=== PATIENT | female | born 1955 | race Caucasian/White ===

== ENCOUNTER 2023-06-05 08:16 | Inpatient (IN) | payer OTHER ==
[~2023-06-05] VITALS: Ht 157.5 cm; Wt 80.7 kg
[2023-06-05 16:28] VITALS: BP 167/80; PULSE 104; RESP 17; TEMP 97.4; O2SAT 97
[2023-06-05 16:55] LABS: BASOPHILS # (AUTO) 0.1 K/uL (0.00-0.22); BASOPHILS % (AUTO) 0.5 % (0.0-2.0); EOSINOPHILS # (AUTO) 0.1 K/uL (0-0.4); EOSINOPHILS % (AUTO) 1.2 % (0.0-4.0); HEMATOCRIT 42.7 % (36-48); HEMOGLOBIN 14.1 g/dL (12.0-16.0); LYMPHOCYTES # (AUTO) 1.8 K/uL (2.5-16.5); LYMPHOCYTES % (AUTO) 18.3 % (20.5-51.1); MEAN CORPUSCULAR HEMOGLOBIN 28 pg (27-31); MEAN CORPUSCULAR HGB CONC 33 g/dL (33-37); MEAN CORPUSCULAR VOLUME 85.4 fL (80-94); MONOCYTES # (AUTO) 0.4 K/uL (0.8-1.0); MONOCYTES % (AUTO) 4.3 % (1.7-9.3); NEUTROPHILS # (AUTO) 7.5 K/uL (1.8-7.7); NEUTROPHILS % (AUTO) 75.7 % (42.2-75.2); PLATELET COUNT (AUTO) 238 K/uL (140-450)
[2023-06-05 17:13] LABS: ANION GAP 11.1 (8-16); CARBON DIOXIDE 26.1 mmol/L (21-32); CHLORIDE 106 mmol/L (98-107); CREATININE 0.8 mg/dL (0.6-1.3); GLUCOSE 181 mg/dL (74-106); POTASSIUM 4.2 mmol/L (3.5-5.1); SODIUM SERUM 139 mmol/L (136-145); UREA NITROGEN, BLOOD 18 mg/dL (7-18)
[2023-06-05 17:14] LABS: ASPARTATE AMINOTRANSFERASE 21 U/L (15-37); GFR ARICAN-AMERICAN 93 mL/min (>90); TOTAL BILIRUBIN 0.3 mg/dL (0.0-1.0)
[2023-06-05] MEDS ORDERED: amLODIPine 5 MG TAB PO ONE (18:35)
[2023-06-05 18:37] LABS: APPEARANCE,URINE CLOUDY (CLEAR); BILIRUBIN,URINE NEGATIVE (NEGATIVE); BLOOD, URINE NEGATIVE (NEGATIVE); COLOR,URINE YELLOW (YELLOW); LEUKOCYTE ESTERASE ,URINE NEGATIVE (NEGATIVE); NITRITE, URINE NEGATIVE (NEGATIVE); UGLUCOSE NEGATIVE (NEGATIVE)
[2023-06-05] MEDS ORDERED: LORazepam 1 MG TAB PO ONE (19:20)
--- NOTE | 2023-06-05 19:21 | NUR ---
RECEIVED IN BED 9 WITH FAMILY AT BEDSIDE, IS CONFUSED AND AGITATED. SANDWICH GIVEN AND PT DOES NOT BELIEVE IT IS FOOD. DR. GRANDA NOTIFIED, ORDERS RECEIVED.
--- NOTE | 2023-06-05 20:24 | NUR ---
pt moved closer to nurses station for closer observation after trying to get out of bed. padding placed on side rails
--- NOTE | 2023-06-05 20:39 | NUR ---
REMAINS VERY CONFUSED AND RESTLESS. ATTEMPTING TO RE-ORIENT PATIENT, UNSUCCESSFUL
[2023-06-05] MEDS ORDERED: QUEtiapine FUMARATE 25 MG TAB PO ONE (21:10)
[2023-06-05] MEDS ORDERED: LORazepam 2 MG/ML VIAL IVP PRN (21:20)
[2023-06-05] MEDS: NACL 0.9% 1,000 ML IV SCH (22:34)
--- NOTE | 2023-06-05 23:14 | NUR ---
NOW RESTING WITH EYES CLOSED RESPIRATIONS REGULAR AND UNLABORED
--- NOTE | 2023-06-06 01:40 | NUR ---
CONTINUES TO REST WITH EYES CLOSED, RESPIRATIONS REGULAR AND UNLABORED
--- NOTE | 2023-06-06 07:28 | NUR ---
Report recieved from BALJINDER Hanley for transfer of care.
[2023-06-06] MEDS ORDERED: MAG SULF 2000 MG/WATER PREMIX 50 ML IV PRN (08:00)
[2023-06-06] MEDS ORDERED: LORazepam 2 MG/ML VIAL IVP PRN (08:20)
--- NOTE | 2023-06-06 09:07 | NUR ---
Patient was provided with incontinent care. Fresh diaper and linen provided.
--- NOTE | 2023-06-06 10:14 | NUR ---
Patient is sleeping on bed, respirations even and unlabored. Patient has no signs of distress noted. All needs met by staff. Patient is being closely monitored.
[2023-06-06] MEDS: NACL 0.9% 1,000 ML IV SCH (11:37)
--- NOTE | 2023-06-06 13:58 | NUR ---
Patient was provided with incontinent care. Fresh linen and diaper provided.
--- NOTE | 2023-06-06 14:43 | NUR ---
Called Darlene Pablo and phone went straight to voicemail.
--- NOTE | 2023-06-06 14:44 | NUR ---
Called Rosendo Rhoades and left a voicemail to call back. Attempting to do med recon but no med list is in file.
--- NOTE | 2023-06-06 15:03 | NUR ---
Patient will be admitted to care of Dr. Dubois. Admited to Med-Surg. Will go to room 124-A. Belongings list completed. Report to BALJINDER Nieves.
--- NOTE | 2023-06-06 15:37 | NUR ---
The patient's care was reviewed and supervised by JAYLENE RODRIGUEZ RN.
[2023-06-06 15:48] VITALS: PULSE 69; RESP 18; O2SAT 96
[2023-06-06 16:00] VITALS: BP 144/77; PULSE 89; RESP 18; TEMP 97.3; O2SAT 97
[2023-06-06] MEDS ORDERED: MORPHINE SULFATE 2 MG/ML SYR IVP PRN (18:25)
[2023-06-06] MEDS ORDERED: DOCUSATE SODIUM 100 MG GELCAP PO PRN (18:25)
[2023-06-06] MEDS ORDERED: ACETAMINOPHEN 325 MG TAB PO PRN (18:25)
[2023-06-06] MEDS ORDERED: ZOLPIDEM 10 MG TAB PO PRN (18:25)
[2023-06-06] MEDS ORDERED: ONDANSETRON 4 MG/2 ML VIAL IVP PRN (18:25)
[2023-06-06] MEDS ORDERED: POTASSIUM CHLORIDE 10 MEQ TABER PO PRN (18:25)
[2023-06-06] MEDS ORDERED: INSULIN LISPRO SLIDING SCALE 100 UNITS/ML VIAL SUBQ PRN (18:30)
--- NOTE | 2023-06-06 18:33 | NUR ---
PAGED CLEOPATRA NORIEGA FOR CONSULT, REF ID [id number]. AWAITING CALLBACK.
--- NOTE | 2023-06-06 19:30 | NUR ---
RECEIVED REPORT FROM DAY SHIFT RN FOR CONTINUITY OF CARE. PT IS CURRENTLY RESTING IN BED. PT IS VERY CONFUSED. WAS ABLE TO SAY HER NAME BUT DOES NOT REMEMBER HER LAST NAME. PT NOT IN ANY DISTRESS. ON 1:1 SITTER. BED AT THE LOWEST POSITION. HEAD OF THE BED RAISED. PT HAS IV ON RIGHT HAND 20 GAUGE. PATENT AND INTACT. WAITING FOR [facility] CONSULT TO CALL.
[2023-06-06 20:00] VITALS: BP 141/74; PULSE 78; RESP 18; TEMP 96.6; O2SAT 99
[2023-06-06] MEDS: lisinopriL 10 MG TAB PO SCH (20:59)
--- NOTE | 2023-06-06 21:00 | NUR ---
SCHEDULE MEDICATIONS GIVEN. NO ADVERSE REACTION NOTED. CLEOPATRA SANON ALREADY TALKED WITH PT.
[2023-06-06] MEDS: BLOOD GLUCOSE MONITORING 1 DEV DEV FS SCH (21:01)
--- NOTE | 2023-06-07 00:22 | NUR ---
OBSERVED PT. PT IS SLEEPING COMFORTABLY IN BED. NOT IN ANY ACUTE DISTRESS. BREATHING EVEN AND UNLABORED. CALL LIGHT WITHIN REACH.
--- NOTE | 2023-06-07 01:47 | NUR ---
ENDORSED PT TO [employer]ICER BALJINDER DOMINGUEZ FOR CONTINUITY OF CARE. PT IS STABLE.
--- NOTE | 2023-06-07 01:48 | NUR ---
RECEIVED REPORT FROM BOARD OF DIRECTORS NURSE TIANA FOR CONTINUITY OF CARE. PATIENT IS A&O X1. PATIENT IS ON ROOM AIR, BREATHING IS NORMAL WITH SYMMETRICAL RISE AND FALL OF CHEST. IV IS A RIGHT HAND 20G; RUNNING NS AT 75. PATIENT IS SLEEPING, LYING SEMI-FOWLERS POSITION. SITTER IS AT BEDSIDE. WILL CONTINUE TO OBSERVE PATIENT.
--- NOTE | 2023-06-07 03:15 | NUR ---
PATIENT VOIDED IN DIAPER WITH NO BM. PATIENT WAS CLEANED AND CHANGED BY SITTER (BALJINDER VALENTE) AND MYSELF. PATIENT WAS COOPERATIVE DURING CHANGING (FOLLOWING COMMANDS). NEW CHUCKS AND DIAPER WERE PLACED. PATIENT IS WENT BACK TO SLEEP AFTER CHANGING. SITTER WILL CONTINUE TO OBSERVE PATIENT.
[2023-06-07 04:00] VITALS: BP 126/79; PULSE 88; RESP 18; TEMP 96.8; O2SAT 98
[2023-06-07 06:10] LABS: BASOPHILS % (AUTO) 0.7 % (0.0-2.0); EOSINOPHILS # (AUTO) 0.2 K/uL (0-0.4); EOSINOPHILS % (AUTO) 3.2 % (0.0-4.0); HEMATOCRIT 40.1 % (36-48); HEMOGLOBIN 13.4 g/dL (12.0-16.0); LYMPHOCYTES # (AUTO) 1.7 K/uL (2.5-16.5); MEAN CORPUSCULAR HEMOGLOBIN 29 pg (27-31); MEAN CORPUSCULAR HGB CONC 33 g/dL (33-37); MEAN CORPUSCULAR VOLUME 85.3 fL (80-94); MONOCYTES # (AUTO) 0.3 K/uL (0.8-1.0); MONOCYTES % (AUTO) 4.9 % (1.7-9.3); NEUTROPHILS # (AUTO) 4.6 K/uL (1.8-7.7); NEUTROPHILS % (AUTO) 66.2 % (42.2-75.2); PLATELET COUNT (AUTO) 205 K/uL (140-450); RED CELL DISTRIBUTION WIDTH 13.6 % (11.6-13.7); WHITE BLOOD COUNT (AUTO) 6.9 K/uL (4.8-10.8)
[2023-06-07 06:19] LABS: ANION GAP 13.6 (8-16); CARBON DIOXIDE 24.1 mmol/L (21-32); CREATININE 0.6 mg/dL (0.6-1.3); POTASSIUM 3.7 mmol/L (3.5-5.1)
[2023-06-07] MEDS: BLOOD GLUCOSE MONITORING 1 DEV DEV FS SCH ×4 (06:48→21:39)
--- NOTE | 2023-06-07 06:49 | NUR ---
PATIENT'S BS WAS 100; NO INSULIN COVERAGE NEEDED. PATIENT VOIDED AGAIN IN DIAPER WITH NO BM. PATIENT WAS CLEANED AND CHANGED BY SITTER (BALJINDER VALENTE) AND MYSELF. PATIENT WAS COOPERATIVE DURING CHANGING (FOLLOWING COMMANDS). NEW CHUCKS AND DIAPER WERE PLACED. PATIENT IS LYING IN SEMI-FOWLERS POSITION. SITTER WILL CONTINUE TO OBSERVE PATIENT.
--- NOTE | 2023-06-07 07:20 | NUR ---
RECEIVED PT FROM RADIO EQUIPMENT REPAIRER FOR CONTINUITY OF CARE. ASLEEP AT THIS TIME. AROUSAL BY NAME AND TACTILE STIMULI. RESP. EVEN AND UNLABORED. ON ROOM AIR. IVF INFUSING WELL. ON 1:1 SITTER FOR SAFETY. NO C/O PAIN OR DISCOMFORT. CALL LIGHT KEPT WITHIN REACH. WILL CONTINUE TO MONITOR.
--- NOTE | 2023-06-07 07:40 | NUR ---
ENDORSED TO DAY SHIFT NURSE ÁNGEL FOR CONTINUITY OF CARE. PATIENT IS STABLE.
[2023-06-07 08:00] VITALS: PULSE 95; RESP 16; O2SAT 98
--- NOTE | 2023-06-07 08:00 | NUR ---
Patient's Plan of Care was discussed and reviewed with FOLLOW UP SPECIALIST: TAISHA
--- NOTE | 2023-06-07 09:04 | NUR ---
PATIENT HAS BEEN SCREENED AND CATEGORIZED LOW NUTRITION RISK. PATIENT WILL BE SEEN WITHIN 7 DAYS OF ADMISSION. 06/05/23-06/12/[address]
[2023-06-07] MEDS: NACL 0.9% 1,000 ML IV SCH ×3 (09:21→23:06)
[2023-06-07] MEDS: lisinopriL 10 MG TAB PO SCH (09:22)
--- NOTE | 2023-06-07 09:22 | NUR ---
LISINOPRIL GIVEN. TOLERATED WELL.
--- NOTE | 2023-06-07 11:32 | NUR ---
BS CHECKED 186. INSULIN GIVEN PER SLIDING SCALE.
[2023-06-07] MEDS: LORazepam 2 MG/ML VIAL IVP PRN (13:06)
--- NOTE | 2023-06-07 13:06 | NUR ---
NOTED PT TRYING TO GET OUT OF BED, ATTEMPTED TO PULLED OUT IV LINES. PRN ATIVAN IVP WAS GIVEN BY MELISSA RN. TOLERATED WELL. ON 1:1 SITTER FOR SAFETY. WILL CONTINUE TO MONITOR.
--- NOTE | 2023-06-07 13:29 | NUR ---
IV SITE INFILTRATED. REINSERTED IV TO LT HAND 22G, WITH GOOD BLOOD RETURN. TOLERATED WELL.
[2023-06-07 16:00] VITALS: BP 111/72; PULSE 96; RESP 16; TEMP 98.4; O2SAT 98
--- NOTE | 2023-06-07 17:02 | NUR ---
RECEIVED CALLED FROM DAUGHTER IN [place]. ALL QUESTIONS ANSWERED.
--- NOTE | 2023-06-07 17:17 | NUR ---
BS CHECKED 119. NO COVERAGE NEEDED.
--- NOTE | 2023-06-07 19:30 | NUR ---
ENDORSED TO LINE PRODUCTION COOK FOR CONTINUITY OF CARE. REMAINS STABLE.
[2023-06-07 20:00] VITALS: BP 154/91; PULSE 96; RESP 17; TEMP 98.6; O2SAT 97
--- NOTE | 2023-06-07 21:40 | NUR ---
BLOOD SUGAR CHECKED = 113, NO SLIDING SCALE COVERAGE. NO INSULIN NEEDED.
--- NOTE | 2023-06-08 00:30 | NUR ---
PT SLEEPS ON AND OFF, PT IS ON CONFUSE CONDITION.
[2023-06-08 05:18] LABS: BASOPHILS # (AUTO) 0.1 K/uL (0.00-0.22); BASOPHILS % (AUTO) 0.7 % (0.0-2.0); EOSINOPHILS # (AUTO) 0.3 K/uL (0-0.4); EOSINOPHILS % (AUTO) 3.5 % (0.0-4.0); HEMATOCRIT 37.4 % (36-48); HEMOGLOBIN 12.3 g/dL (12.0-16.0); LYMPHOCYTES % (AUTO) 26.6 % (20.5-51.1); MEAN CORPUSCULAR HEMOGLOBIN 28 pg (27-31); MEAN CORPUSCULAR HGB CONC 33 g/dL (33-37); MEAN CORPUSCULAR VOLUME 85.7 fL (80-94); MONOCYTES # (AUTO) 0.5 K/uL (0.8-1.0); MONOCYTES % (AUTO) 6.3 % (1.7-9.3); NEUTROPHILS # (AUTO) 4.7 K/uL (1.8-7.7); NEUTROPHILS % (AUTO) 62.9 % (42.2-75.2); PLATELET COUNT (AUTO) 191 K/uL (140-450); RED BLOOD CELL COUNT(AUTO) 4.36 MIL/uL (4.20-5.40); RED CELL DISTRIBUTION WIDTH 13.7 % (11.6-13.7); WHITE BLOOD COUNT (AUTO) 7.4 K/uL (4.8-10.8)
[2023-06-08 05:31] LABS: ANION GAP 11.2 (8-16); CARBON DIOXIDE 25.8 mmol/L (21-32); CREATININE 0.7 mg/dL (0.6-1.3)
[2023-06-08] MEDS: BLOOD GLUCOSE MONITORING 1 DEV DEV FS SCH ×3 (06:48→17:02)
--- NOTE | 2023-06-08 06:48 | NUR ---
BLOOD SUGAR CHECKED = 102, NO SLIDING SCALE COVERAGE.
--- NOTE | 2023-06-08 07:10 | NUR ---
RECEIVED PT FROM NIGHT NURSE GADIEL FOR CONTINUITY OF CARE. ALERT AND ORIENTED WITH EPISODE OF CONFUSION. RESP EVEN AND UNLABORED. ON ROOM AIR. IV SITE INTACT. INFUSING WELL. ON 1:1 SITTER FOR SAFETY. NO C/O PAIN OR DISCOMFORT. CALL LIGHT KEPT WITHIN REACH. WILL CONTINUE TO MONITOR
--- NOTE | 2023-06-08 07:13 | NUR ---
PT IS ON STABLE CONDITION. SAFETY MEASURES ARE IN PLACE. ENDORSED TO DAY SHIFT NURSE FOR CONTINUITY OF CARE.
[2023-06-08 08:00] VITALS: BP 159/81; PULSE 82; RESP 17; TEMP 98.1; O2SAT 98
[2023-06-08] MEDS: lisinopriL 10 MG TAB PO SCH (09:02)
--- NOTE | 2023-06-08 09:02 | NUR ---
ADMINISTERED SCHEDULED MEDICATIONS. TOLERATED WELL.
[2023-06-08] MEDS: NACL 0.9% 1,000 ML IV SCH (09:10)
[2023-06-08] MEDS ORDERED: LISI10TA30 PO (11:26)
--- NOTE | 2023-06-08 11:31 | NUR ---
SEEN BY ST, NO NEW RECOMMENDATION CONTINUE CURRENT DIET.
--- NOTE | 2023-06-08 11:51 | NUR ---
BS CHECKED 117. NO COVERAGE NEEDED.
--- NOTE | 2023-06-08 15:19 | NUR ---
RECEIVED ORDER FOR PATIENT TO GO TO SNF FOR PT. FAXED ALL PAPERWORK TO [facility] PER PATIENT AND [facility] PER DAUGHTER AND SON. PATIENT WAS ACCEPTED AT [facility] LOCATED AT [address] [id number]. SPOKE WITH PATRIC FROM [facility] PATIENT WILL BE GOING TO ROOM 10-B UNDER DR PEÑA. TRANSPORTATION WAS ARRANGED BY PATRIC AT [facility] FOR A [id number] BUDGET SPECIALIST TIME. NURSE ÁNGEL IS AWARE OF THE ABOVE INFORMATION WHO CALLED PATIENTS FAMILY TO INFORM THEY OF THE ABOVE INFORMATION.
--- NOTE | 2023-06-08 15:21 | NUR ---
INFORMED BY ОЛЕГ RODRIGUEZ ORTHOTICS TECHNICIAN, PT GOT ACCEPTED AT [facility]. CALLED DAUGHTER IN [place] AND MADE AWARE.
[2023-06-08 16:00] VITALS: BP 149/90; PULSE 96; RESP 18; TEMP 98.1; O2SAT 100
--- NOTE | 2023-06-08 17:02 | NUR ---
BS CHECKED 116. NO COVERAGE NEEDED.
--- NOTE | 2023-06-08 17:10 | NUR ---
RECEIVED CALLED ABDULKADIR [facility] SPOKE TO PATRIC. TRANSPORTATION ETA 1800.
[2023-06-08] MEDS: LORazepam 2 MG/ML VIAL IVP PRN (17:32)
--- NOTE | 2023-06-08 17:32 | NUR ---
NOTED PT CRYING, RESTLESS. PRN ATIVAN IVP WAS GIVEN. TOLERATED WELL.
--- NOTE | 2023-06-08 17:37 | NUR ---
CALLED ABDULKADIR [facility], REPORT GIVEN TO SERGEI GALE.
--- NOTE | 2023-06-08 18:30 | NUR ---
PT LEFT. DISCHARGE TO [facility]. TRANSPORTED BY [facility]IA [employer]. ALERT ORIENTED X 1. RESP. EVEN AND UNLABORED. ID BAND AND IV REMOVED. SKIN INTACT. DISCHARGED PAPERWORKS GIVEN TO TRANSPORTER. NO PERSONAL BELONGINGS. REMAINS STABLE.
== END 2023-06-08 18:53 | DRG 640 ==
LOC: MED 16:03 → MMU 21:40 → MTU 06-06 14:40
PROVIDERS: ADMIT Family Medicine; ATTEND Family Medicine
DX: E86.0 Dehydration (principal); G93.41 Metabolic encephalopathy; R65.10 Systemic inflammatory response syndrome (SIRS) of non-infectious origin without acute organ dysfunction; R44.3 Hallucinations, unspecified; G20 Parkinson's disease; R62.7 Adult failure to thrive; Z68.32 Body mass index [BMI] 32.0-32.9, adult; F02.80 Dementia in other diseases classified elsewhere, unspecified severity, without behavioral disturbance, psychotic disturbance, mood disturbance, and anxiety; E11.65 Type 2 diabetes mellitus with hyperglycemia
CPT/HCPCS: 36415; 70450; 71045; 80048; 80053; 81003; 82140; 82607; 82948; 83036; 83735; 84443; 84484; 85025; 86592; 87081; 92526; 93005; 96374; 97116; 97530; 99285; J2060